=== PATIENT | female | born 1990 | race Two or more races ===

== ENCOUNTER 2017-10-30 22:49 | Emergency (ER) | payer OTHER ==
[~2017-10-30] VITALS: Ht 160 cm; Wt 62.6 kg
[2017-10-30 23:04] VITALS: BP 114/77
[2017-10-30] MEDS ORDERED: BACITRACIN TOP OINT 1 UD PKG TOP ONE (23:30)
[2017-10-30] MEDS ORDERED: LIDOCAINE 1% HCL (LOCAL ANESTH.) INJ 20ML MDV IJ ONE (23:30)
== END 2017-10-31 00:03 | disposition home or self-care (01) ==
LOC: ER 22:49
DX: S51.811A Laceration without foreign body of right forearm, initial encounter (principal); W26.9XXA Contact with unspecified sharp object(s), initial encounter; Y93.G1 Activity, food preparation and clean up; Y99.8 Other external cause status; Y92.89 Other specified places as the place of occurrence of the external cause
CPT/HCPCS: 12002; 99283; J2001